=== PATIENT | female | born 1980 | race Caucasian/White ===

== ENCOUNTER 2019-03-22 17:04 | Emergency (ER) | payer OTHER ==
[~2019-03-22] VITALS: Ht 157.5 cm; Wt 140.2 kg
[2019-03-22 17:08] VITALS: Ht 157.5 cm; Wt 140.2 kg
[2019-03-22 18:49] VITALS: BP 149/91
== END 2019-03-22 18:49 | disposition home or self-care (01) ==
LOC: ED 17:04
DX: L03.116 Cellulitis of left lower limb (principal); L03.115 Cellulitis of right lower limb; Z98.890 Other specified postprocedural states; W57.XXXA Bitten or stung by nonvenomous insect and other nonvenomous arthropods, initial encounter; Y93.89 Activity, other specified; Y92.89 Other specified places as the place of occurrence of the external cause; Y99.8 Other external cause status
CPT/HCPCS: J1100; Q0163